=== PATIENT | male | born 1950 | race Caucasian/White ===

== ENCOUNTER 2019-08-03 12:12 | Emergency (ER) | payer MEDICARE, BC ==
[2019-08-03 12:21] VITALS: BP 151/93
--- NOTE | 2019-08-03 12:26 | ED Physician Documentation ---
PD HPI MAJOR TRAUMA - Stated complaint Stated Complaint: L SIDED ABD PX - Chief complaint Chief Complaint: Trauma Abd - History obtained from History obtained from: Patient - History of Present Illness Mechanism of injury: Other (About 4 days ago he was in the garage and his came over sideways and the handlebar hit him on the left lower lateral chest. He has persistent and actually increasing pain there. He took a Percocet prior to arrival and declines pain medication on initial evaluation. No other injuries.) Review of Systems Cardiac: denies: Palpitations, Pedal edema, Calf pain Respiratory: denies: Dyspnea, Cough GI: denies: Abdominal Pain, Nausea, Vomiting PD PAST MEDICAL HISTORY - Past Medical History : Kidney stones HEENT: Glaucoma Musculoskeletal: Gout - Past Surgical History Past Surgical History: Yes General: Colonoscopy - Present Medications Home Medications: Ambulatory Orders Medication Instructions Recorded Confirmed Allopurinol 150 mg PO BID 04/10/16 04/10/16 Hydrocodone/Acetaminophen 1 - 2 each PO Q6H PRN #20 tablet 04/10/16 [Hydrocodon-Acetaminophen 5-325] Hydrocodone/Acetaminophen [Vicodin 1 - 2 tab PO Q6HR PRN 04/10/16 04/10/16 5-300 mg Tablet] Ibuprofen [Motrin] 800 mg PO Q8H PRN #30 tablet 04/10/16 Indomethacin 50 mg PO DAILY PRN 04/10/16 04/10/16 Ondansetron Odt [Zofran] 4 mg TL Q6H PRN #10 tablet 04/10/16 Sildenafil Citrate [Viagra] 1 tab PO DAILY 04/10/16 04/10/16 Timolol [Betimol] 1 drop EACHEYE BID 04/10/16 04/10/16 Oxycodone HCl/Acetaminophen 1 - 2 each PO Q6H PRN #25 tablet 08/03/19 [Percocet 5-325 mg Tablet] - Allergies Allergies/Adverse Reactions: Allergies Allergy/AdvReac Type Severity Reaction Status Date / Time No Known Drug Allergies Allergy Verified 08/03/19 12:16 - Social History Does the pt smoke?: No Smoking Status: Never smoker Does the pt drink ETOH?: Yes Does the pt have substance abuse?: No - Immunizations Immunizations are current?: Yes - POLST Patient has POLST: No PD ED PE NORMAL - Vitals Vital signs reviewed: Yes - General General: Alert and oriented X 3, No acute distress - Neck Neck: Supple, no meningeal sign, No bony TTP - Cardiac Cardiac: RRR, No murmur - Respiratory Respiratory: No respiratory distress, Clear bilaterally, Other (There is no definite visible deformity or ecchymosis of the left chest. He is tender about rib 10, anterior axillary line. There is no corresponding upper abdominal tenderness.) - Abdomen Abdomen: Non tender - Neuro Neuro: Alert and oriented X 3, Normal speech Results - Vitals Vitals: Vital Signs - 24 hr 08/03/19 12:16 Temperature 36.4 C L Heart Rate 75 Respiratory 15 Rate Blood Pressure 151/93 H O2 Saturation 99 Oxygen O2 Source Room air - Rads (name of study) L ribs and chest Radiology: EMP read contemporaneously (single L 6th rib frx) Departure - Departure Disposition: 01 Home, Self Care Clinical Impression: Fracture of rib, single, closed Qualifiers: Encounter type: initial encounter Laterality: left Qualified Code(s): S22.32XA - Fracture of one rib, left side, initial encounter for closed fracture Condition: Good Record reviewed to determine appropriate education?: Yes Instructions: ED Fx Rib Prescriptions: Oxycodone HCl/Acetaminophen [Percocet 5-325 mg Tablet] 1 - 2 each PO Q6H PRN #25 tablet PRN Reason: pain Comments: Call your doctor to arrange a follow-up appointment, make the next available appointment. In the interim, return anytime if worse or if new symptoms develop. Do not drink or drive while taking narcotic pain medication. Note that many narcotic pain relievers also contain Tylenol/acetaminophen. Pl ease ensure that your total dose of acetaminophen from all sources does not exceed 3 g (3000 mg) per day. You may get constipated while on this medication. Take a stool softener such as Colace twice a day while you are on it. Also add an [id number] laxative such as senna or MiraLAX on any day that you do not have a bowel movement. If you received a narcotic pain medication or sedative while in the emergency department, do not drive for the next 24 hours. Your blood pressure was elevated today on check into the emergency department. This does not mean that you have hypertension, it is a common phenomenon to come to the emergency department and have elevated blood pressure. I recommend that you see your primary care physician within the week to have it rechecked when you are feeling better.
--- NOTE | 2019-08-03 13:50 | XRAY Report ---
Reason: left rib inj Procedure Date: 08/03/2019 Accession Number: [id number] / [id number] Procedure: XR - Ribs w/PA Chest LT CPT Code: FULL RESULT: EXAM: LEFT RIB RADIOGRAPHY EXAM DATE: 08/03/2019 01:31 PM. CLINICAL HISTORY: Left rib inj. COMPARISON: None. TECHNIQUE: 1 view of the chest and 2 views of the ribs. FINDINGS: Bones: There is an acute nondisplaced fracture of the left anterior lateral sixth rib. Lungs: No evidence pneumothorax. Hypoventilatory chest with bibasilar atelectasis. Mediastinum: Heart and mediastinal contours are unremarkable. Other: None. IMPRESSION: Acute nondisplaced left sixth rib fracture. No evidence of pneumothorax. [facility]
== END 2019-08-03 14:08 | disposition home or self-care (01) ==
LOC: ED 12:12
DX: S22.32XA Fracture of one rib, left side, initial encounter for closed fracture (principal); W20.8XXA Other cause of strike by thrown, projected or falling object, initial encounter; Y93.89 Activity, other specified; Y92.008 Other place in unspecified non-institutional (private) residence as the place of occurrence of the external cause; R03.0 Elevated blood-pressure reading, without diagnosis of hypertension
CPT/HCPCS: 99283; 99284